=== PATIENT | female | born 1975 | race African-American/Black ===

== ENCOUNTER 2025-05-17 05:00 | Emergency (ER) | payer MEDICAID ==
[~2025-05-17] VITALS: Ht 167.6 cm; Wt 90.0 kg
[2025-05-17 05:01] VITALS: O2SAT 95
[2025-05-17 05:34] LABS: BASOPHILS % 0.8 % (0.0-2.0); EOSINOPHILS % 2.2 % (0.0-5.0); HEMATOCRIT. 33.5 % (36.0-48.0); HEMOGLOBIN. 10.5 g/dL (12.0-16.0); LYMPHOCYTES % 41.9 % (20.0-50.0); MEAN PLATELET VOLUME 7.9 fl (7.4-10.4); MONOCYTES % 9.2 % (2.0-8.0); NEUTROPHILS % 45.9 % (40.0-76.0); PLATELET 331 x1000/uL (130-400); RED BLOOD CELL COUNT 4.03 mill/uL (4.2-5.4); RED CELL DISTRIBUTION WIDTH 17.7 % (11.6-14.6)
[2025-05-17 05:49] LABS: CREATININE 0.7 mg/dL (0.6-1.0); ETHANOL BLOOD 234 mg/dL (<10); UREA NITROGEN BLOOD 8 mg/dL (9-23)
[2025-05-17 05:50] LABS: PROTEIN TOTAL 7.1 g/dL (6.0-8.3)
[2025-05-17 05:51] LABS: ASPARTATE AMINOTRANSFERASE 19 IU/L (<34); BILIRUBIN TOTAL 0.2 mg/dL (0.1-1.0)
[2025-05-17 07:43] LABS: HCG SCREEN NEGATIVE
[2025-05-17 07:58] VITALS: BP 126/66; PULSE 66; RESP 16; TEMP 36.6; O2SAT 98
== END 2025-05-17 08:48 | disposition home or self-care (01) ==
LOC: ER 05:00
DX: F10.129 Alcohol abuse with intoxication, unspecified (principal); I10 Essential (primary) hypertension; Y90.9 Presence of alcohol in blood, level not specified
CPT/HCPCS: 80053; 80320; 84703; 85025; 36415; 70450; 99284; A4615; A4606; G0480